=== PATIENT | male | born 1985 | race Caucasian/White ===

== ENCOUNTER 2018-11-04 15:36 | Inpatient (IN) | payer OTHER ==
[2018-11-04 15:37] VITALS: BMI 25.1
[2018-11-04 15:56] VITALS: O2SAT 99
--- NOTE | 2018-11-04 18:03 | RAD ---
Date of service: 11/04/2018 HISTORY: shortness of breath, cough COMPARISON: No prior. TECHNIQUE: Chest PA and lateral FINDINGS: LUNGS: No active pulmonary disease. PLEURA: No significant pleural effusion identified. No pneumothorax apparent. CARDIOVASCULAR: No aortic atherosclerotic calcification present. Normal cardiac size. No pulmonary vascular congestion. OSSEOUS STRUCTURES: No significant abnormalities. VISUALIZED UPPER ABDOMEN: Normal. OTHER FINDINGS: None. IMPRESSION: No active disease.
--- NOTE | 2018-11-04 18:05 | ED PDOC ---
HPI: Psych/Substance Abuse Time Seen by Provider: 11/04/18 16:16 Chief Complaint (Nursing): Psychiatric Evaluation Chief Complaint (Provider): Psychiatric Evaluation History Per: Patient History/Exam Limitations: no limitations Onset/Duration Of Symptoms: Days Current Symptoms Are (Timing): Still Present Additional Complaint(s): 33 y/o female with a PMHx of Schizoaffective disorder bipolar type brought in by EMS after patient called due to feeling suicidal and homicidal. Patient states he has been suicidal for several years and feeling like he wants to "blow things up" or "kill [his] parents so that the people who are making him feel like he doesn't have any psychiatric problems will see the truth". Patient additionally reports of wanting to "jump off something". Patient admits to hearing voices stating they are mocking him. Patient states voices are telling him to find out if Ozzy is his father and kill him. When asked who Ozzy was, patient states Ozzy works at [employer] [facility] [place]. Additionally, patient reports he is unable to move his left arm for the past couple of years. Patient further states he can move it but feels like it isn't a part of his body. Otherwise, patient denies tingling or injury to the left arm. PMD: none provided. Past Medical History Reviewed: Historical Data, Nursing Documentation, Vital Signs Vital Signs: Last Vital Signs Temp 97.6 F 11/04/18 15:52 Pulse 90 11/04/18 15:52 Resp 18 11/04/18 15:52 BP 122/62 11/04/18 15:52 Pulse Ox 99 11/04/18 15:52 - Medical History PMH: Bipolar Disorder, Schizophrenia Denies: Diabetes, Hepatitis, HIV, HTN, Chronic Kidney Disease, Seizures, Sexually Transmitted Disease - Surgical History Surgical History: No Surg Hx - Family History Family History: States: Unknown Family Hx - Immunization History Hx Tetanus Toxoid Vaccination: No Hx Influenza Vaccination: No Hx Pneumococcal Vaccination: No - Home Medications Home Medications: Ambulatory Orders Medication Instructions Recorded No Known Home Med 11/04/18 - Allergies Allergies/Adverse Reactions: Allergies Allergy/AdvReac Type Severity Reaction Status Date / Time No Known Allergies Allergy Verified 02/25/18 22:09 Review of Systems ROS Statement: Except As Marked, All Systems Reviewed And Found Negative Psych: Positive for: Suicidal ideation (and homicidal ideation) Physical Exam - Reviewed Nursing Documentation Reviewed: Yes Vital Signs Reviewed: Yes - Physical Exam Appears: Positive for: No Acute Distress Cardiovascular/Chest: Positive for: Regular Rate, Rhythm. Negative for: Murmur Respiratory: Positive for: Normal Breath Sounds. Negative for: Respiratory Distress Pulses-Radial (L): 2+ Extremity: Positive for: Normal ROM (Full ROM with flexion and extension of the left arm ) Neurologic/Psych: Positive for: Alert, Oriented, Mood/Affect (agittated), Other (disorganized thoughts and pressured speech) - Laboratory Results Result Diagrams: 11/04/18 18:17 11/04/18 18:17 - ECG ECG Rhythm: Positive for: Sinus Rhythm Rate: 70 O2 Sat by Pulse Oximetry: 99 (RA) Pulse Ox Interpretation: Normal Medical Decision Making Medical Decision Making: Time: 1721 Impression: Crisis Evaluation Plan: -- EKG -- Alcohol Serum -- BMP -- Urine Drug Screen -- CBC with Differentials -- CXR Two Views -- 1:1 Observation -- Urinalysis Time: 1800 -- Patient seen by crisis who state patient will be admitted with a diagnosis of schizoaffective bipolar disorder as per Dr. Meier. CXR FINDINGS: LUNGS: No active pulmonary disease. PLEURA: No significant pleural effusion identified. No pneumothorax apparent. CARDIOVASCULAR: No aortic atherosclerotic calcification present. Normal cardiac size. No pulmonary vascular congestion. OSSEOUS STRUCTURES: No significant abnormalities. VISUALIZED UPPER ABDOMEN: Normal. OTHER FINDINGS: None. IMPRESSION: No active disease. -- Patient is medically stable for psychiatric admission. Report given to floor by crisis workers who were informed that patient is medically stable. Scribe Attestation: Documented by Kb Sen, acting as a scribe Steve Vallejo PA-C. Provider Scribe Attestation: All medical record entries made by the Scribe were at my direction and personally dictated by me. I have reviewed the chart and agree that the record accurately reflects my personal performance of the history, physical exam, medical decision making, and the department course for this patient. I have also personally directed, reviewed, and agree with the discharge instructions and disposition. Disposition - Clinical Impression Clinical Impression: Schizoaffective disorder, bipolar type - Patient ED Disposition Is Patient to be Admitted: Yes Discussed With : Lexa Meier Doctor Will See Patient In The: Hospital Counseled Patient/Family Regarding: Studies Performed, Diagnosis, Need For Followup - Disposition Disposition: Transfer of Care Disposition Time: 20:29 Condition: FAIR
[2018-11-04 19:20] LABS: BASO % 0.5 % (0.0-2.0); EOS # 0.2 K/uL (0.0-0.7); EOS % 2.9 % (0.0-4.0); HEMOGLOBIN 13.8 g/dL (12.0-18.0); LYMPH # 2.6 K/uL (1.0-4.3); LYMPH % 37.5 % (20.0-40.0); MEAN CELL VOLUME 85.7 fl (80.0-94.0); MEAN CORPUSCULAR HEMOGLOBIN 29.7 pg (27.0-31.0); MEAN CORPUSCULAR HGB CONC 34.7 g/dL (33.0-37.0); MEAN PLATELET VOLUME 7.7 fl (7.2-11.7); MONO # 0.6 K/uL (0.0-0.8); MONO % 8.7 % (0.0-10.0); NEUT # 3.5 K/uL (1.8-7.0); NEUT % 50.4 % (50.0-75.0); NRBC % 0.1 % (0.0-0.0); RBC 4.65 Mil/uL (4.40-5.90); RED CELL DISTRIBUTION WIDTH 13.8 % (11.5-14.5)
[2018-11-04 19:24] LABS: URINE BILIRUBIN NEGATIVE (NEGATIVE); URINE BLOOD NEGATIVE (NEGATIVE); URINE CLARITY CLEAR (Clear); URINE COLOR YELLOW (YELLOW); URINE GLUCOSE (UA) NEG (NEGATIVE); URINE LEUKOCYTE ESTERASE NEG Leu/uL (Negative); URINE PROTEIN NEGATIVE (NEGATIVE); URINE UROBILINOGEN 0.2-1.0 mg/dL (0.2-1.0)
[2018-11-04 19:31] LABS: BLOOD UREA NITROGEN 16 mg/dl (9-20); CALCIUM 9.5 mg/dL (8.4-10.2); GFR NON-AFRICAN AMERICAN > 60
[2018-11-04 19:43] LABS: BARBITURATES, UR NEGATIVE (NEGATIVE); BENZODIAZEPINES, UR NEGATIVE (NEGATIVE); OPIATES, UR NEGATIVE (NEGATIVE); PHENCYCLIDINE, UR NEGATIVE (NEGATIVE)
[2018-11-04] MEDS ORDERED: Magnesium Hydroxide Susp 30 ml UD PO PRN (22:12)
[2018-11-04] MEDS ORDERED: DiphenhydrAMINE 50 mg/ml Inj IM PRN (22:12)
[2018-11-04] MEDS ORDERED: Alum-Mag Hydrox-Simethicone Susp (30 mL) PO PRN (22:12)
--- NOTE | 2018-11-04 22:21 | PCM.BM ---
<Neptali Mccarty P - Last Filed: 11/04/18 22:19> Treatment Plan Problems - Problems identified on initial assessmt Homicidal Ideations Date Initiated: 11/04/18 Time Initiated: 22:19 Assessment reference: NA Status: Active Auditory Hallucinations Date Initiated: 11/04/18 Time Initiated: 22:20 Assessment reference: NA Status: Active Medication nonadherence Date Initiated: 11/04/18 Time Initiated: 22:20 Assessment reference: NA Status: Active Treatment assets and liabiliti Patient Assests: cooperative, ADL independent, physically healthy, negotiates basic needs, cognitively intact Patient Liabilities: live alone, financial problems, relationship conflicts - Milieu Protocol Maintain good personal hygiene: daily Encourage regular showers, daily Remind patient to perform daily oral care, daily Assist patient to perform ADL's Conduct patient checks and document Observation sheet: Q15 minutes Maintain personal safety: every shift Educate patient to report safety concerns to staff, every shift Monitor environment for contraband/sharps Medication safety: Monitor for expected outcome, potential side effects: every shift, Assess barriers to learning: every shift, Assess readiness for medication education: every shift <Hilary Baez - Last Filed: 11/07/18 11:30> Treatment assets and liabiliti Patient Assests: adapts well, cooperative (Pt. easily irritable and often abruptly ends discussions with marketing copywriter, but does respond to redirection.), educated, resourceful, self-reliant, ADL independent, physically healthy, good support system (Pt. has appropriate community linkages.), negotiates basic needs, cognitively intact Patient Liabilities: live alone ( Pt. currently residing in an apartment through [facility]. Pt. identifies this as primary stressor contributing to acute onset of sxs.), poor support system (Pt. denies having any family/social supports. Pt. reports discord with mother, step-father, and 4 siblings. ), relationship conflicts (Pt. continues to express homicidal ideations towards community home health care case manager.) Family Contact Family involvement: Famliy/SO not involved Family contact: Patient declines to allow family contact at present - Outside Agency Agency 1 Care involvment: Following patient during stay, Information-sharing, Other Agency contact name: [facility] Agency contact number: Dl Edith ([phone]) Agency 2 Care involvment: Following patient during stay, Information-sharing, Other Agency contact name: [facility] Agency contact number: [phone] - Goals for Treatment Patient goals for treatment: Patient to continue stabilization on 3NP through medication management and group/supportive therapy to eliminate SI/HI, reduce AH, and improve behavioral control and lability in mood. Patient to be encouraged to attend groups regularly to promote self-awareness, impulse control, and improve insight, compliance, coping skills and self-esteem. Patient to be provided with referral for appropriate level of aftercare to reduce risk of future hospitalizations and ensure safety in the community. Pt. unable to fully participate in tx team on 11/06 and set tx goals. Pt. perseverating on discord with [facility] home health care case manager and current housing status. Pt. to continue to be met with by tx team to assess progress and set tx goals. Discharge/Continuing Care - Education Needs Education Needs: Patient Medication, Patient Diagnosis/Disease Process, Patient Coping Skills, Patient Anger Management skills, Patient Community resources, Patient Aftercare Safety Plan - Discharge Discharge Criteria: Tolerates medication w/o severe side effects, Free of Suicidal thoughts, Free of Homicidal thoughts, Free of paranoid thoughts, Free of agitation, Normal sleep pattern, Ability to care for self Discharge to:: Other ([facility]) - Treatment Team Participation Patient/Family/SO Statement: 11/07/18 11:35 Patient was invited to 3NP this morning to discuss precursors to hospitalization and tx goals. Pt. presented as irritable and restless. Pt. reported suicidal ideations, stating I keep thinking of how to kill myself. Pt. declined to elaborate regarding plan or intent but was able to contract for safety. Staff availability emphasized. Pt. expressed homicidal ideations towards home health care case manager in the community, stating Theyre after me. Theyre telling lies about me. I want to kill. Pt. listed several names but declined to elaborate on what community linkages pt. has/organizations people listed work for. Pt. expressed frustration regarding being taken out of a alf and placed in a supported housing apartment. Pt. became increasingly agitated, refusing to provide collateral/set tx goals, and perseverating on HI towards community home health care case manager. Insight/Coping skills/Judgment grossly impaired. Pt. signed a 48 hour notice after receiving extensive psychoeducation regarding screening process and possible commitment. Pt. medicated secondary to escalating bxs. Discussed with Family/SO: No Was Patient/Family/SO present at Treatment Team Meeting: Yes <Lexa Meier - Last Filed: 11/07/18 12:45> - Diagnosis (1) Schizoaffective disorder, bipolar type Status: Acute Interventions: pharmacotherapy 11/07/18 12:45
--- NOTE | 2018-11-05 10:53 | CARD ---
APPROVED REPORT Date of service: 11/04/2018 EKG Measurement Heart [id number] <Conclusion> Normal sinus rhythm Normal ECG
--- NOTE | 2018-11-05 14:12 | PCM.PSYCH ---
Initial Psychiatric Evaluation - Initial Psychiatric Evaluation Legal Status: Capacity Chief Complaint (in patient's own words): I know they are against me History of Present Illness and Precipitating Events: pt is 33 ys old male with previous psychiatric diagnosis of schizoaffective disorder brought to ER by police due to disorganized behaviour and after expressing suicidal and homicidal ideation pt has been recently discharged from [facility] with questionable compliance with medications, on evaluation, patient is uncooperative, , poor eye contact, angry and irritable , reported feeling uncomfortable in the hospital , pt also expressing paranoid delusions towards his case aide and supportive housing staff, indicating that they are trying to set him to commit suicide, pt believes they evicted him from the correction two years ago on purpose , pt verbalizing suicidal ideation stating he wants to bomb himself also reported homicidal ideation towards supportive housing staff Current Medications: Active Medications Generic Name Dose Route Start Last Admin Trade Name Freq PRN Reason Stop Dose Admin Acetaminophen 650 mg 11/04/18 22:12 11/05/18 11:37 Tylenol 325mg Tab PO 650 mg Q4 PRN Administration pain level 4-7 Al Hydrox/Mg Hydrox/Simethicone 30 ml 11/04/18 22:12 Maalox Plus 30 Ml PO Q4 PRN Dyspepsia Benztropine Mesylate 1 mg 11/05/18 17:00 Cogentin PO BID TOR Benztropine Mesylate 1 mg 11/05/18 22:00 Cogentin PO HS TOR Diphenhydramine HCl 50 mg 11/04/18 22:12 Benadryl IM Q6 PRN Extrapyramidal S/S Unable PO Diphenhydramine HCl 50 mg 11/04/18 22:12 11/04/18 22:23 Benadryl PO 50 mg Q6 PRN Administration Extrapyramidal Symptoms Diphenhydramine HCl 50 mg 11/04/18 22:14 Benadryl PO HS PRN Sleep Haloperidol 5 mg 11/04/18 22:12 11/04/18 22:23 Haldol PO 5 mg Q4 PRN Administration Agitation Haloperidol 10 mg 11/05/18 17:00 Haldol PO BID TOR Haloperidol 10 mg 11/05/18 22:00 Haldol PO HS TOR Haloperidol Lactate 5 mg 11/04/18 22:12 Haldol IM Q4 PRN Agitation, Unable to Take PO Lorazepam 2 mg 11/04/18 22:12 Ativan IM Q6H PRN Anxiety/Agitation,Unable PO Lorazepam 2 mg 11/04/18 22:12 11/04/18 22:23 Ativan PO 2 mg Q6H PRN Administration Anxiety/Agitation Magnesium Hydroxide 30 ml 11/04/18 22:12 Milk Of Magnesia PO HS PRN Constipation Past Psychiatric History - Past Psychiatric History Nature of Treatment: multiple hospitalizations, including [facility] and [facility] History of ETOH/Drug Use: denied urine toxicology is negative Pertinent Medical Hx (Current Medical&Sleep Prob, Allergies): Allergies Allergy/AdvReac Type Severity Reaction Status Date / Time No Known Allergies Allergy Verified 02/25/18 22:09 No Known Home Med 11/04/18 Mental Status Examination - Personal Presentation Personal Presentation: Looks stated age - Affect Affect: Constricted Additional comments: angry, irritable , labile - Motor Activity Motor Activity: Psychomotor Agitation - Reliability in Providing Information Reliability in Providing Information: Poor, due to alteration in thoughts, Poor, due to altered mood - Speech Speech: Disorganized - Mood Mood: Anxious - Formal Thought Process Formal Thought Process: Delusions, Paranoia - Obsessions/Compulsions Obsessions: No Compulsions: No - Cognitive Functions Orientation: Person, Place Sensorium: Alert Attention/Concentration: Easily distracted Abstract Thinking: [place] Judgement: Imparied, as evidence by: Poor judgement, Imparied, as evidence by: Lack of insight into illness - Risk Risk: Suicidal, Homicidal, Diminished functioning - Strength & Assets Inventory Strength & Assets Inventory: Life experience - Limitations Additional comments: poor compliance DSM 5 DX - DSM 5 DSM 5 Diagnosis: schizoaffective disorder bipolar - Recommended/Plan of Treatment Treatment Recommendations and Plan of Treatment: start haldol 10mg tid / EKG noted to be normal cogentin 1mg tid contact meaw view and case manger for collateral information group and supportive therapy
--- NOTE | 2018-11-06 11:25 | PCM.PYCHPN ---
Psychiatric Progress Note - Psychiatric Progress Note Patient seen today, length of contact: pt evaluated discussed with team chart reviewed Patient Chief Complaint: I will kill them then kill myself Problems Identified/Issues Discussed: pt evaluated with treatment team, uncooperative, poor eye contact, angry mood , speech loud with threatening , domineering and irritable affect pt presenting with paranoid delusions towards his correctional case manager and supportive housing staff stating that they are after him , trying to set him up and verbalizing homicidal threats stating he wants to kill them then kill himself, possibly blow them out and do the same with himself pt with limited insight into illness, paranoid towards staff members uncooperative with the interview and signed 48 hour notice requesting to be discharged DSM 5 Symptoms Update: schizoaffective disorder bipolar antisocial personality disorder traits Medication Change: Yes (start depakote) Medical Record Reviewed: Yes Mental Status Examination - Cognitive Function Orientation: Person, Place Attention: Poor Concentration: Poor Association: Loose Fund of Knowledge: Poor Decription of patient's judgement and insights: poor insight and judgment - Mood Mood: Anxious - Affect Additional comments: angry, irritable, labile, domineering - Speech Speech: Loud, Pressured - Formal Thought Process Formal Thought Process: Delusions, Paranoia, Loosening of associations, Circu mstantial - Suicidal Ideation Suicidal Ideation: Yes - Homicidal Ideation Homicidal Ideation: Yes Goal/Treatment Plan - Goal/Treatment Plan Need for Continued Stay: Remain at risks for inpatient hospitalization, Discharge may exacerbated symptoms Progress Toward Problem(s) and Goals/Treatment Plan: pt at current mental status , angry paranoid psychotic expressing homicidal and suicidal threats, requesting to be discharged , signing 48 hour notice, pt will be referred for screening for involuntary admission for safety of self and others start depakote 500 mg bid continue haldol 10mg tid / cogentin 1mg tid contact anup[facility] view and case manger for collateral information group and supportive therapy
[2018-11-06] MEDS ORDERED: Divalproex 500 mg DR(BID formulation) PO SCH (17:00)
--- NOTE | 2018-11-07 14:48 | PCM.PYCHPN ---
Psychiatric Progress Note - Psychiatric Progress Note Patient seen today, length of contact: pt evaluated discussed with team chart reviewed Patient Chief Complaint: They are not providing me the help I need Problems Identified/Issues Discussed: pt evaluated continues to be angry and irritable, continues to verbalize verbal threats stating he wants to hurt his nurse outreach case manager as they would not provide him with the halfway he wants to live at also reported passive suicidal ideation stating he does not want to continue living if he is forced to go back to supportive housing , denied active thoughts of self harm on the unit, pt with limited insight into illness, uncooperative refusing to attend groups, no reported side effects of medications DSM 5 Symptoms Update: schizoaffective disorder bipolar type Medication Change: Yes (increase depakote ) Medical Record Reviewed: Yes Mental Status Examination - Cognitive Function Orientation: Person, Place Attention: Poor Concentration: Poor Association: Loose Fund of Knowledge: Poor Decription of patient's judgement and insights: poor insight and judgment - Mood Mood: Anxious - Affect Affect: Constricted - Speech Speech: Loud, Pressured - Formal Thought Process Formal Thought Process: Delusions, Paranoia, Loosening of associations, Circumstantial - Suicidal Ideation Suicidal Ideation: Yes - Homicidal Ideation Homicidal Ideation: Yes Goal/Treatment Plan - Goal/Treatment Plan Need for Continued Stay: Remain at risks for inpatient hospitalization, Discharge may exacerbated symptoms Progress Toward Problem(s) and Goals/Treatment Plan: increase depakote 500mg bid and 500mg qhs haldol 10mg tid / cogentin 1mg tid contact iris watson and breonna mariano for collateral information group and supportive therapy
[2018-11-07] MEDS: Divalproex 500 mg DR(BID formulation) PO SCH (18:00)
[2018-11-07] MEDS ORDERED: Divalproex 500 mg DR(BID formulation) PO SCH (22:00)
[2018-11-08] MEDS: Divalproex 500 mg DR(BID formulation) PO SCH (08:59)
--- NOTE | 2018-11-08 13:23 | PCM.PYCHPN ---
Psychiatric Progress Note - Psychiatric Progress Note Patient seen today, length of contact: pt evaluated discussed with team chart reviewed Patient Chief Complaint: I gained a lot of weight on depakote Problems Identified/Issues Discussed: pt evaluated , seen in bed , continues to be paranoid irritable, evasive complained of side effects of depakote , discussed starting trileptal for mood stabilization encouraged patient to start attending groups, also discussed arranging meeting with case worker to arrange for after discharge planning pt continues to present with concrete thought process and thought blocking, denied command hallucinations, denied any current active suicidal or homicidal ideation DSM 5 Symptoms Update: schizoaffective disorder bipolar type Medication Change: Yes (start trileptal) Medical Record Reviewed: Yes Mental Status Examination - Cognitive Function Orientation: Person, Place Attention: Poor Concentration: Poor Association: Loose Fund of Knowledge: Poor Decription of patient's judgement and insights: poor insight and judgment - Mood Mood: Anxious - Affect Affect: Constricted - Speech Speech: Loud, Pressured - Formal Thought Process Formal Thought Process: Delusions, Paranoia, Loosening of associations, Circumstantial - Suicidal Ideation Suicidal Ideation: Yes - Homicidal Ideation Homicidal Ideation: Yes Goal/Treatment Plan - Goal/Treatment Plan Need for Continued Stay: Remain at risks for inpatient hospitalization, Discharge may exacerbated symptoms Progress Toward Problem(s) and Goals/Treatment Plan: discontinue depakote start trileptal 150mg bid/increase gradually haldol 10mg tid / cogentin 1mg tid arrange meeting with case worker to discuss disposition planning upon patient consent
--- NOTE | 2018-11-09 08:39 | PCM.PYCHPN ---
Psychiatric Progress Note - Psychiatric Progress Note Patient seen today, length of contact: Pt evaluated, case discussed w/ team, chart reviewed Patient Chief Complaint: "I keep having delusions." Problems Identified/Issues Discussed: Patient reports that he is having "delusions" that he someone took him to [place] and left him there. He also reports feeling fearful of returning home due to concerns that people may want to fight him. He also states that he continues to have to reassure himself that the [employer] (05/14) did not happen in his apt. Patient reports racing thoughts and has disorganized tangential thought process. He reports that his mood continues to fluctuate. We discussed continued titration of Trileptal. No adverse effects to medications reported at this time. Medication Change: Yes (Increase Trileptal) Medical Record Reviewed: Yes Consults ordered or reviewed: Medicine consult Mental Status Examination - Cognitive Function Orientation: Person, Place, Situation, Time Memory: Intact Attention: Poor Concentration: Poor Association: Loose Decription of patient's judgement and insights: Poor I/J - Mood Mood: Anxious - Affect Affect: Constricted - Speech Speech: Pressured - Formal Thought Process Formal Thought Process: Delusions, Paranoia, Loosening of associations, Circumstantial Psychotic Thoughts and Behaviors: +Paranoia; +Delusions - Suicidal Ideation Suicidal Ideation: No - Homicidal Ideation Homicidal Ideation: No Goal/Treatment Plan - Goal/Treatment Plan Need for Continued Stay: Remain at risks for inpatient hospitalization, Discharge may exacerbated symptoms Progress Toward Problem(s) and Goals/Treatment Plan: Schizoaffective Disorder, bipolar type -Continue Haldol and Cogentin -Increase Trileptal -Individual and group therapy -Psychoeducation -Dispositon planning
--- NOTE | 2018-11-09 20:33 | CP.PCM.CON ---
<Falguni Godfrey - Last Filed: 11/09/18 20:35> History of Present Illness - History of Present Illness History of Present Illness: 33 y/o male w/ hx of schizoeffective disorder admitted to psych unit due to suicidal and homicidal ideation. We are consulted for medical assessment/management. PMD: none Pmhx: schizoeffective disorder HomeRx: denies Allergies: Denies Famhx: denies SurgHx: denies Socialhx: denies tobacco/etoh use. Endorses prior use of cocain and marijuana Review of Systems - Review of Systems All systems: reviewed and no additional remarkable complaints except - Constitutional Constitutional: Fatigue - Psychiatric Psychiatric: Abnormal Sleep Pattern, Auditory Hallucinations, Depression, Irritability, Paranoia, Suicidal Ideation Past Patient History - Past Social History Smoking Status: Light Smoker < 10 Cigarettes Daily Drugs: Cannabis, Cocaine - CARDIAC Hx Hypertension: No - PULMONARY Hx Tuberculosis: No - NEUROLOGICAL Hx Seizures: No - HEENT Hx HEENT Problems: No - RENAL Hx Chronic Kidney Disease: No - ENDOCRINE/METABOLIC Hx Endocrine Disorders: No - HEMATOLOGICAL/ONCOLOGICAL Hx Human Immunodeficiency Virus (HIV): No - INTEGUMENTARY Hx Dermatological Problems: No - MUSCULOSKELETAL/RHEUMATOLOGICAL Hx Musculoskeletal Disorders: No - GASTROINTESTINAL Hx Gastrointestinal Disorders: No - GENITOURINARY/GYNECOLOGICAL Hx Sexually Transmitted Disorders: No - PSYCHIATRIC Hx Bipolar Disorder: Yes Hx Schizophrenia: Yes - SURGICAL HISTORY Hx Surgeries: No - ANESTHESIA Hx Anesthesia: No Meds Allergies/Adverse Reactions: Allergies Allergy/AdvReac Type Severity Reaction Status Date / Time No Known Allergies Allergy Verified 02/25/18 22:09 - Medications Medications: Current Medications Acetaminophen (Tylenol 325mg Tab) 650 mg PO Q4 PRN PRN Reason: pain level 4-7 Last Admin: 11/05/18 11:37 Dose: 650 mg Al Hydrox/Mg Hydrox/Simethicone (Maalox Plus 30 Ml) 30 ml PO Q4 PRN PRN Reason: Dyspepsia Benztropine Mesylate (Cogentin) 1 mg PO BID COUNTS INCLUDE 234 BEDS AT THE [facility] Last Admin: 11/09/18 18:01 Dose: 1 mg Benztropine Mesylate (Cogentin) 1 mg PO HS COUNTS INCLUDE 234 BEDS AT THE [facility] Last Admin: 11/08/18 21:03 Dose: 1 mg Diphenhydramine HCl (Benadryl) 50 mg IM Q6 PRN PRN Reason: Extrapyramidal S/S Unable PO Diphenhydramine HCl (Benadryl) 50 mg PO Q6 PRN PRN Reason: Extrapyramidal Symptoms Last Admin: 11/06/18 10:16 Dose: 50 mg Diphenhydramine HCl (Benadryl) 50 mg PO HS PRN PRN Reason: Sleep Haloperidol (Haldol) 5 mg PO Q4 PRN PRN Reason: Agitation Last Admin: 11/06/18 10:16 Dose: 5 mg Haloperidol (Haldol) 10 mg PO BID COUNTS INCLUDE 234 BEDS AT THE [facility] Last Admin: 11/09/18 18:06 Dose: 10 mg Haloperidol (Haldol) 10 mg PO HS COUNTS INCLUDE 234 BEDS AT THE [facility] Last Admin: 11/08/18 21:03 Dose: 10 mg Haloperidol Lactate (Haldol) 5 mg IM Q4 PRN PRN Reason: Agitation, Unable to Take PO Lorazepam (Ativan) 2 mg IM Q6H PRN PRN Reason: Anxiety/Agitation,Unable PO Lorazepam (Ativan) 2 mg PO Q6H PRN PRN Reason: Anxiety/Agitation Last Admin: 11/06/18 10:16 Dose: 2 mg Magnesium Hydroxide (Milk Of Magnesia) 30 ml PO HS PRN PRN Reason: Constipation Oxcarbazepine (Trileptal) 300 mg PO BID COUNTS INCLUDE 234 BEDS AT THE [facility] Last Admin: 11/09/18 18:00 Dose: 300 mg Physical Exam - Constitutional Appears: Unkempt - Head Exam Head Exam: ATRAUMATIC, NORMAL INSPECTION - Eye Exam Eye Exam: EOMI, Normal appearance Pupil Exam: PERRL - ENT Exam ENT Exam: Mucous Membranes Moist - Respiratory Exam Respiratory Exam: Clear to Auscultation Bilateral, NORMAL BREATHING PATTERN - Cardiovascular Exam Cardiovascular Exam: REGULAR RHYTHM, +S1, +S2 - GI/Abdominal Exam GI & Abdominal Exam: Normal Bowel Sounds, Soft. absent: Distended, Firm, Guarding, Tenderness - Extremities Exam Extremities exam: Positive for: normal inspection - Neurological Exam Neurological exam: Alert, Oriented x3 - Psychiatric Exam Psychiatric exam: Depressed, Homicidal Ideation, Suicidal Ideation - Skin Skin Exam: Dry, Warm Results - Vital Signs Recent Vital Signs: Last Vital Signs Temp 97.9 F 11/09/18 17:00 Pulse 89 11/09/18 17:00 Resp 18 11/09/18 17:00 BP 123/62 11/09/18 17:00 Pulse Ox 99 11/05/18 01:09 - Labs Result Diagrams: 11/04/18 18:17 11/04/18 18:17 Assessment & Plan - Assessment and Plan (Free Text) Assessment: 33 y/o male w/ hx of schizoeffective disorder admitted to psych unit due to suicidal and homicidal ideation. We are consulted for medical assessment/management. Plan: Schizoeffective Disorder Cont management as per psych Hx of recreational drug use Urine tox screen negative Diet Regular DVT prophylaxis Encourage ambulation Code status Full code <Tabitha Smith - Last Filed: 11/10/18 09:13> Meds - Medications Medications: Current Medications Acetaminophen (Tylenol 325mg Tab) 650 mg PO Q4 PRN PRN Reason: pain level 4-7 Last Admin: 11/05/18 11:37 Dose: 650 mg Al Hydrox/Mg Hydrox/Simethicone (Maalox Plus 30 Ml) 30 ml PO Q4 PRN PRN Reason: Dyspepsia Benztropine Mesylate (Cogentin) 1 mg PO BID COUNTS INCLUDE 234 BEDS AT THE [facility] Last Admin: 11/09/18 18:01 Dose: 1 mg Benztropine Mesylate (Cogentin) 1 mg PO HS COUNTS INCLUDE 234 BEDS AT THE [facility] Last Admin: 11/09/18 21:10 Dose: 1 mg Diphenhydramine HCl (Benadryl) 50 mg IM Q6 PRN PRN Reason: Extrapyramidal S/S Unable PO Diphenhydramine HCl (Benadryl) 50 mg PO Q6 PRN PRN Reason: Extrapyramidal Symptoms Last Admin: 11/06/18 10:16 Dose: 50 mg Diphenhydramine HCl (Benadryl) 50 mg PO HS PRN PRN Reason: Sleep Haloperidol (Haldol) 5 mg PO Q4 PRN PRN Reason: Agitation Last Admin: 11/06/18 10:16 Dose: 5 mg Haloperidol (Haldol) 10 mg PO BID COUNTS INCLUDE 234 BEDS AT THE [facility] Last Admin: 11/09/18 18:06 Dose: 10 mg Haloperidol (Haldol) 10 mg PO HS COUNTS INCLUDE 234 BEDS AT THE [facility] Last Admin: 11/09/18 21:10 Dose: 10 mg Haloperidol Lactate (Haldol) 5 mg IM Q4 PRN PRN Reason: Agitation, Unable to Take PO Lorazepam (Ativan) 2 mg IM Q6H PRN PRN Reason: Anxiety/Agitation,Unable PO Lorazepam (Ativan) 2 mg PO Q6H PRN PRN Reason: Anxiety/Agitation Last Admin: 11/06/18 10:16 Dose: 2 mg Magnesium Hydroxide (Milk Of Magnesia) 30 ml PO HS PRN PRN Reason: Constipation Oxcarbazepine (Trileptal) 300 mg PO BID TOR Last Admin: 11/09/18 18:00 Dose: 300 mg Results - Vital Signs Recent Vital Signs: Last Vital Signs Temp 97.9 F 11/09/18 17:00 Pulse 89 11/09/18 17:00 Resp 18 11/09/18 17:00 BP 123/62 11/09/18 17:00 Pulse Ox 99 11/05/18 01:09 - Labs Result Diagrams: 11/04/18 18:17 11/04/18 18:17 Attending/Attestation - Attestation I have personally seen and examined this patient.: Yes I have fully participated in the care of the patient.: Yes I have reviewed all pertinent clinical information: Yes Notes (Text): 11/10/18 09:13 agree with findings and plan as above.
--- NOTE | 2018-11-10 09:54 | PCM.PYCHPN ---
Psychiatric Progress Note - Psychiatric Progress Note Patient seen today, length of contact: Pt evaluated, case discussed w/ team, chart reviewed Patient Chief Complaint: "I keep having delusions." Problems Identified/Issues Discussed: Patient continues to be disorganized, tangential w/ pressured speech and paranoia. He is labile and irritable w/ proposal writer, only willing to answer some questions. He reports SI to jump off a roof. No adverse effects to medications reported at this time. Medication Change: No Medical Record Reviewed: Yes Consults ordered or reviewed: Medicine consult Mental Status Examination - Cognitive Function Orientation: Person, Place, Situation, Time Memory: Intact Attention: Poor Concentration: Poor Association: Loose Decription of patient's judgement and insights: Poor I/J - Mood Mood: Anxious - Affect Affect: Constricted - Speech Speech: Pressured - Formal Thought Process Formal Thought Process: Delusions, Paranoia, Loosening of associations, Circumstantial Psychotic Thoughts and Behaviors: +Paranoia; +Delusions - Suicidal Ideation Suicidal Ideation: No - Homicidal Ideation Homicidal Ideation: No Goal/Treatment Plan - Goal/Treatment Plan Need for Continued Stay: Remain at risks for inpatient hospitalization, Discharge may exacerbated symptoms Progress Toward Problem(s) and Goals/Treatment Plan: Schizoaffective Disorder, bipolar type -Continue Haldol and Cogentin -Continue Trileptal -Individual and group therapy -Psychoeducation -Dispositon planning
--- NOTE | 2018-11-11 15:08 | PCM.PYCHPN ---
Psychiatric Progress Note - Psychiatric Progress Note Patient seen today, length of contact: Pt evaluated, case discussed w/ team, chart reviewed Patient Chief Complaint: I do not trust my casework specialist Problems Identified/Issues Discussed: pt evaluated , seen in bed , continues to be irritable,labile , continues to have delusions of persecution towards business case analyst , pt signed 48 hours notice requestiing to be discharged,was screened but found not to meet criteria for involuntary admission, psychoeducation provided, discussed with pt the need for continuity of care for medication adjustment, discussed increasing dose of trileptal, pt denied command hallucinations, denied any current active suicidal or homicidal ideation DSM 5 Symptoms Update: schizoaffective disorder bipolar Medication Change: No Medical Record Reviewed: Yes Mental Status Examination - Cognitive Function Orientation: Person, Place, Situation, Time Memory: Intact Attention: Poor Concentration: Poor Association: Loose - Mood Mood: Anxious - Affect Affect: Constricted - Speech Speech: Pressured - Formal Thought Process Formal Thought Process: Delusions, Paranoia, Loosening of associations, Circumstantial - Suicidal Ideation Suicidal Ideation: No - Homicidal Ideation Homicidal Ideation: No Goal/Treatment Plan - Goal/Treatment Plan Need for Continued Stay: Remain at risks for inpatient hospitalization, Discharge may exacerbated symptoms Progress Toward Problem(s) and Goals/Treatment Plan: increase trileptal 300mg daily and 600mg qhs haldol 10mg tid / cogentin 1mg tid arrange meeting with business case analyst to discuss disposition planning upon patient consent
[2018-11-12 10:54] VITALS: BP 110/59; PULSE 80; RESP 20; TEMP 98.5
--- NOTE | 2018-11-12 11:13 | PCM.PYCHDC ---
Mental Status Examination - Mental Status Examination Orientation: Person, Place, Situation Memory: Intact Mood: Neutral Affect: Constricted Speech: Appropriate Attention: WNL Concentration: Poor Association: WNL Fund of Knowledge: Poor Formal Thought Process: Circumstantial Description of patient's judgement and insight: poor insight and judgment Psychotic Thoughts and Behaviors: pt on discharge denied any psychotic symptoms, non elicited Suicidal Ideation: No Current Homicidal Ideation?: No Discharge Summary - Discharge Note Reason for Hospitalization: pt is 33 ys old male with previous psychiatric diagnosis of schizoaffective disorder brought to ER by police due to disorganized behaviour and after expressing suicidal and homicidal ideation pt has been recently discharged from [facility] with questionable compliance with medications, on evaluation, patient is uncooperative, , poor eye contact, angry and irritable , reported feeling uncomfortable in the hospital , pt also expressing paranoid delusions towards his manager case management and supportive housing staff, indicating that they are trying to set him to commit suicide, pt believes they evicted him from the skilled nursing two years ago on purpose , pt verbalizing suicidal ideation stating he wants to bomb himself also reported homicidal ideation towards supportive housing staff Psychiatric History (includes Medical, Family, Personal Hx): multiple hospitalizations, including [facility] Consultations:: List each consultation separately and include: 1. Reason for request. 2. Findings. 3. Follow-up Summary of Hospital Course include:: 1. Description of specific treatment plan utilized for patients during their course of treatmen. 2. Summarize the time- course for resolution of acute symptoms and/or regressed behaviors. 3. Describe issues identified and worked on during hospitalization. 4. Describe medication utilized. 5. Describe medical problems identified and treated. 6. Reassessment of suicide risk Summary of Hospital Course: pt on admission presented with angry mood and irritable affect, started verbalizing suicidal ideation to jump out of the window and homicidal ideation towards his manager case management, pt stated he is angry because he needs to go back to a skilled nursing rather than in supervised housing as he feels he could not take care of his own instrumental daily life activities as shopping and paying bills, pt was referred for screening by [facility] for involuntary admission because of the suicidal and homicidal threats, he was found not to meet criteria for involuntary admission pt was started on haldol increased to 10mg tid also was started on trileptal increased to 900 mg daily no reported side effects of medications pt then signed 48 hours notice requesting to be discharged, he was re screened for involuntary admission as he needed further time for medication stabilization and for referral to [facility], [place] [facility] [place] was found not to meet criteria for involuntary admission and at current mental status not danger to self or others a meeting was held with patient his case manger and manager social services to discuss with patient possible after care, patient agreed to be referred to [facility] but refused to rescind the 48 hour notice, advised patient the need to continue with care till a solid appointment for the intake at [facility] is established , he declined , he was discharged against medical advise, on discharge patient denied any current suicidal or homicidal ideation denied perceptual disturbances, non elicited social welfare clerk will follow up with manager case management in reference to the [facility] referral status - Diagnosis (1) Schizoaffective disorder, bipolar type Current Visit: Yes Status: Acute - Final Diagnosis (DSM 5) Condition upon Discharge: FAIR DSM 5: schizoaffective disorder bipolar type Disposition: AGAINST MEDICAL ADVICE Follow-up Treatment Plan: [facility] Prescriptions/Medication Reconciliation: Benztropine [Cogentin] 1 mg PO HS 30 Days #30 tab Benztropine [Cogentin] 1 mg PO BID 30 Days #60 tab Haloperidol [Haldol] 10 mg PO HS 30 Days #30 tab Haloperidol [Haldol] 10 mg PO BID 30 Days #30 tab OXcarbazepine [Trileptal] 300 mg PO DAILY 30 Days #30 tab OXcarbazepine [Trileptal] 600 mg PO HS 30 Days #30 tab - Antipsychotic Medications Pt discharged on 2 or more routine antipsychotic medications: No
== END 2018-11-12 14:40 | disposition left against medical advice (07) | DRG 430 ==
LOC: H.ER 15:36 → H.ERHOLD 20:29 → H.PSYCH 22:01
PROVIDERS: ADMIT Psychiatry & Neurology Psychiatry; ATTEND Psychiatry & Neurology Psychiatry
PROC: GZHZZZZ Group Psychotherapy (ICD-10-PCS; principal; 2018-11-04)
PROC: GZ56ZZZ Individual Psychotherapy, Supportive (ICD-10-PCS; 2018-11-04)
DX: F25.0 Schizoaffective disorder, bipolar type (principal); R45.850 Homicidal ideations; R45.851 Suicidal ideations; F17.210 Nicotine dependence, cigarettes, uncomplicated